=== PATIENT | male | born 1990 | race Caucasian/White ===

== ENCOUNTER 2018-11-30 15:24 | Emergency (ER) | payer SELFPAY ==
[2018-11-30 15:41] VITALS: BP 148/80
--- NOTE | 2018-11-30 16:58 | ER Document Report ---
ED General - General Chief Complaint: Swelling of Lower Extremity Stated Complaint: SWOLLEN FEET Time Seen by Provider: 11/30/18 16:47 Mode of Arrival: Ambulatory Information source: Patient Notes: This 28-year-old healthy male presents to the emergency department with complaints of bilateral lower extremity swelling and non pruitic rash. Patient reports symptoms started yesterday. Denies fever vomiting diarrhea. Denies allergies. Denies past medical history. 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 TRAVEL OUTSIDE OF THE [place] IN LAST 30 DAYS: No - Related Data Allergies/Adverse Reactions: No Known Allergies Allergy (Verified 11/30/18 15:26) Past Medical History - General Information source: Patient - Social History Smoking Status: Current Every Day Smoker Chew tobacco use (# tins/day): No Frequency of alcohol use: None Drug Abuse: None Occupation: factory Family History: Reviewed & Not Pertinent. denies: CAD Patient has suicidal ideation: No Patient has homicidal ideation: No - Medical History Medical History: Negative Renal/ Medical History: Denies: Hx Peritoneal Dialysis Surgical Hx: Negative - Immunizations Hx Diphtheria, Pertussis, Tetanus Vaccination: Yes Review of Systems - Review of Systems Notes: Review HPI for review of systems., All other systems negative Physical Exam - Vital signs Vitals: Temp Pulse Resp BP Pulse Ox 97.7 F 87 14 148/80 H 96 11/30/18 15:40 11/30/18 15:40 11/30/18 15:40 11/30/18 15:40 11/30/18 15:40 - General General appearance: Appears well, Alert In distress: None - HEENT Head: Normocephalic Eyes: Normal Conjunctiva: Normal Extraocular movements intact: Yes Neck: Normal, Supple - Respiratory Respiratory status: No respiratory distress - Cardiovascular Rhythm: Regular - Extremities General upper extremity: Normal ROM General lower extremity: Normal ROM - Neurological Neuro grossly intact: Yes Cognition: Normal Orientation: AAOx4 Aurora Coma Scale Eye Opening: Spontaneous Antonino Coma Scale Verbal: Oriented [place] Coma Scale Motor: Obeys Commands Aurora Coma Scale Total: 15 Speech: Normal Sensory: Normal - Psychological Associated symptoms: Normal affect, Normal mood - Skin Skin Temperature: Warm Skin Moisture: Dry Location of irregularity: Extremities Character of irregularity: Macular - Flat macular irregular rash that blanches to bilateral medial ankles.. negative: Vesicular, Erythematous Irregularity with: Scaling - Scaling noted to the bottom of both feet, in between the toes.. negative: Tenderness, Warmth, Lymphangitis, Inflammation Course - Re-evaluation Re-evalutation: 11/30/18 18:11 This 28-year-old male presents emergency department with complaints of rash and bilateral leg swelling. Labs are unremarkable. Patient does have athletes feet. Was instructed on care of this. He verbalized understanding to all instructions. Dictation of this chart was performed using voice recognition software; therefore, there may be some unintended grammatical errors. 11/30/18 17:18 11/30/18 17:18 MCV 87 fl (80-97) 11/30/18 17:18 MCH 29.8 pg (27.0-33.4) 11/30/18 17:18 MCHC 34.3 g/dL (32.0-36.0) 11/30/18 17:18 RDW 13.5 % (11.5-14.0) 11/30/18 17:18 Seg Neutrophils % 69.8 % (42-78) 11/30/18 17:18 Lymphocytes % 16.9 % (13-45) 11/30/18 17:18 Monocytes % 8.4 % (3-13) 11/30/18 17:18 Eosinophils % 4.3 % (0-6) 11/30/18 17:18 Basophils % 0.6 % (0-2) 11/30/18 17:18 Absolute Neutrophils 7.6 10^3/uL (1.7-8.2) 11/30/18 17:18 Absolute Lymphocytes 1.8 10^3/uL (0.5-4.7) 11/30/18 17:18 Absolute Monocytes 0.9 10^3/uL (0.1-1.4) 11/30/18 17:18 Absolute Eosinophils 0.5 10^3/uL (0.0-0.6) 11/30/18 17:18 Absolute Basophils 0.1 10^3/uL (0.0-0.2) 11/30/18 17:18 Chloride 102 mmol/L (98-107) 11/30/18 17:18 Carbon Dioxide 31 mmol/L (22-30) H 11/30/18 17:18 Anion Gap 7 (5-19) 11/30/18 17:18 Est GFR ( Amer) > 60 (>60) 11/30/18 17:18 Est GFR (Non-Af Amer) > 60 (>60) 11/30/18 17:18 Glucose 95 mg/dL (75-110) 11/30/18 17:18 Calcium 9.8 mg/dL (8.4-10.2) 11/30/18 17:18 Total Bilirubin 0.4 mg/dL (0.2-1.3) 11/30/18 17:18 AST 22 U/L (17-59) 11/30/18 17:18 ALT 32 U/L (21-72) 11/30/18 17:18 Alkaline Phosphatase 95 U/L (38-126) 11/30/18 17:18 Total Protein 7.2 g/dL (6.3-8.2) 11/30/18 17:18 Albumin 4.5 g/dL (3.5-5.0) 11/30/18 17:18 Urine Color STRAW 11/30/18 17:18 Urine Appearance CLEAR 11/30/18 17:18 Urine pH 8.0 (5.0-9.0) 11/30/18 17:18 Ur Specific Orwell 1.005 11/30/18 17:18 Urine Protein NEGATIVE mg/dL (NEGATIVE) 11/30/18 17:18 Urine Glucose (UA) NEGATIVE mg/dL (NEGATIVE) 11/30/18 17:18 Urine Ketones NEGATIVE mg/dL (NEGATIVE) 11/30/18 17:18 Urine Blood NEGATIVE (NEGATIVE) 11/30/18 17:18 Urine Nitrite NEGATIVE (NEGATIVE) 11/30/18 17:18 Ur Leukocyte Esterase NEGATIVE (NEGATIVE) 11/30/18 17:18 Urine WBC (Auto) 1 /HPF 11/30/18 17:18 Urine RBC (Auto) 1 /HPF 11/30/18 17:18 - Vital Signs Vital signs: Temp Pulse Resp BP Pulse Ox 97.7 F 87 14 148/80 H 96 11/30/18 15:40 11/30/18 15:40 11/30/18 15:40 11/30/18 15:40 11/30/18 15:40 - Laboratory Result Diagrams: 11/30/18 17:18 11/30/18 17:18 Laboratory results interpreted by me: 11/30/18 11/30/18 17:18 17:18 WBC 10.8 H Carbon Dioxide 31 H Discharge - Discharge Clinical Impression: Athletes foot Qualifiers: Laterality: bilateral Qualified Code(s): B35.3 - Tinea pedis Condition: Stable Disposition: HOME, SELF-CARE Instructions: Athletes Foot ([facility]) Additional Instructions: *You have been treated for bilateral leg swelling, rash athletes foot *Take medication as prescribed *Monitor your skin for signs of infection such as increasing pain, redness, swelling, warmth *rest, elevate your legs *Follow up with a primary care provider within one week *Return to ED for signs of infection, worsening condition, changes, needs Monitor your blood pressure. Your blood pressure was elevated today. This may be because you were anxious, in pain or because you need medication. It is important to follow up with your primary care provider for full evaluation. Forms: Elevated Blood Pressure, Return to Work
[2018-11-30 17:42] LABS: ABSOLUTE BASOPHILS # (AUTO) 0.1 10^3/uL (0.0-0.2); ABSOLUTE EOSINOPHILS # (AUTO) 0.5 10^3/uL (0.0-0.6); ABSOLUTE LYMPHOCYTES (AUTO) 1.8 10^3/uL (0.5-4.7); ABSOLUTE MONOCYTES (AUTO) 0.9 10^3/uL (0.1-1.4); ABSOLUTE NEUT (AUTO) 7.6 10^3/uL (1.7-8.2); BASOPHILS % (AUTO) 0.6 % (0-2); EOSINOPHILS % (AUTO) 4.3 % (0-6); HEMOGLOBIN 14.7 g/dL (13.5-17.0); LYMPHOCYTES % (AUTO) 16.9 % (13-45); MEAN CORPUSCULAR HEMOGLOBIN 29.8 pg (27.0-33.4); MEAN CORPUSCULAR HGB CONC 34.3 g/dL (32.0-36.0); MEAN CORPUSCULAR VOLUME 87 fl (80-97); MONOCYTES % (AUTO) 8.4 % (3-13); PLATELET COUNT 251 10^3/uL (150-450); RED BLOOD COUNT 4.94 10^6/uL (4.35-5.55); RED CELL DISTRIBUTION WIDTH 13.5 % (11.5-14.0); SEGMENTED NEUTROPHILS % (AUTO) 69.8 % (42-78); TOTAL CELLS COUNTED % (AUTO) 100 %; WHITE BLOOD COUNT 10.8 10^3/uL (4.0-10.5)
[2018-11-30 17:48] LABS: APPEARANCE,URINE CLEAR; BILIRUBIN,URINE NEGATIVE (NEGATIVE); COLOR,URINE STRAW; GLUCOSE, URINE NEGATIVE (NEGATIVE); KETONES,URINE NEGATIVE (NEGATIVE); LEUKOCYTE ESTERASE,URINE NEGATIVE (NEGATIVE); NITRITE,URINE NEGATIVE (NEGATIVE); PROTEIN,URINE NEGATIVE (NEGATIVE); URINE SPECIFIC GRAVITY 1.005; UROBILINOGEN,URINE NEGATIVE mg/dL (<2.0)
[2018-11-30 17:57] LABS: ALANINE AMINOTRANSFERASE 32 U/L (21-72); ALBUMIN 4.5 g/dL (3.5-5.0); ALKALINE PHOSPHATASE 95 U/L (38-126); ANION GAP 7 (5-19); ASPARTATE AMINO TRANSFERASE 22 U/L (17-59); BILIRUBIN,DIRECT 0.2 mg/dL (0.0-0.4); BILIRUBIN,TOTAL 0.4 mg/dL (0.2-1.3); BLOOD UREA NITROGEN 8 mg/dL (7-20); CALCIUM 9.8 mg/dL (8.4-10.2); CARBON DIOXIDE 31 mmol/L (22-30); CHLORIDE 102 mmol/L (98-107); GLUCOSE 95 mg/dL (75-110); POTASSIUM 4.4 mmol/L (3.6-5.0); TOTAL PROTEIN 7.2 g/dL (6.3-8.2)
== END 2018-11-30 18:29 | disposition home or self-care (01) ==
LOC: ER 15:24
DX: B35.3 Tinea pedis (principal); F17.200 Nicotine dependence, unspecified, uncomplicated
CPT/HCPCS: 36415; 80053; 81001; 85025; 99283

== ENCOUNTER → 2019-11-17 | Outpatient (CLI) | payer BC ==
--- NOTE | 2019-11-17 12:00 | ER [facility] ASSESSMENT REPORT ---
Intake - In the Last 14 days Have you traveled outside [place]?: No Have you been in close contact with someone CONFIRMED: No Worked in Healthcare?: No - Symptoms Subjective Fever([place] feverish): Yes Chills: No Muscule Aches: Yes Runny Nose: Yes Sore Throat: Yes Cough (New or worsening chronic cough): Yes Shortness of breath: Yes Nausea or Vomiting: No Headache: Yes Abdominal Pain: No Diarrhea(3 or more loose stools in last 24 hours): No - Do you have any of the following Chronic lung disease: Asthma or emphysema or COPD: No Cystic Fibrosis: No Diabetes: No High Blood Pressure: No Cardiovascular Disease: No Chronic Kidney Disease: No Chronic Liver Disease: No Chronic blood disorder like Sickle Cell Disease: No Weak immune system due to disease or medication: No Neurologic condition that limits movement: No Developmental delay - Moderate to Severe: No Recent (within past 2 weeks) or current : No Morbid Obesity (>100 pounds over ideal weight): No - Objective Temperature: 97.4 F Pulse Rate: 84 Respiratory Rate: 18 Blood Pressure: 142/68 O2 Sat by Pulse Oximetry: 96 Objective: Given above, testing performed: If Testing Performed: Test Specimen Type Sent to General - General Information source: Patient Notes: Patient presents to the [facility] for screening for the coronavirus. Patient reports having symptoms for the past 5 days including fever, body aches, runny nose, sore throat cough and shortness of breath. Patient has had a headache as well. Patient denies any significant medical history. Patient is a smoker. - Related Data Allergies/Adverse Reactions: No Known Allergies Allergy (Verified 11/30/18 15:26) Past Medical History - General Information source: Patient - Social History Smoking Status: Current Every Day Smoker Family History: Reviewed & Not Pertinent. denies: CAD - Medical History Medical History: Negative Renal/ Medical History: Denies: Hx Peritoneal Dialysis Surgical Hx: Negative Physical Exam - Notes Notes: Full physical exam could not be performed due to covid 19 isolation protocols. Constitutional: Nontoxic appearance, no acute distress Eyes: Nonicteric, extraocular movements intact, sclera clear Cardiovascular: Heart rate and rhythm regular, no JVD Respiratory: Breath sounds clear bilaterally, nonlabored breathing, no use of accessory muscles, no tachypnea Gastrointestinal: Abdomen not distended Muculoskeletal: Moves all extremities well Skin: Normal color Neuro: Awake alert oriented, normal speech Psych: Normal mood and affect Diagnostic Results Laboratory Results: The patient was evaluated during the global Covid 19 pandemic, and that diagnosis was suspected/considered upon their initial presentation. Their evaluation, treatment and testing was consistent with current guidelines for patients who present with complaints or symptoms that may be related to Covid 19. Patient presents with upper respiratory symptoms worrisome for possible Covid 19. Patient does not have emergency worrying symptoms such as difficulty breathing, shortness of breath, chest pain, pressure, confusion or cyanosis. Patient appears suitable for discharge as they are not of an advanced age, do n ot have any chronic medical conditions such as diabetes, CAD, immune deficiency, chronic lung disease or chronic kidney disease. Patient's vital signs are stable and patient is nontoxic in appearance. Good return precautions have been discussed with patient, patient verbalized understanding and is agreeable with discharge plan of care at this time. Patient Education/Counseling Counseling/Education: Patient was provided with discharge information including: As a person under investigation for Covid 19, the [facility] of Health and Human Services, division of public health advises you to adhere to the following guidance until your test results are reported to you. If your test result is positive, you will receive additional information from your provider and your local health department at that time. Remain at home until you are cleared by the health provider or public health authorities. Keep a log of visitors to your home, notify any visitors to your home of your isolation status. If you plan to move to a new address or leave the county, notify the local health department in your County. Call your doctor or seek care if you have an urgent medical need. Before seeking medical care, call ahead to get instructions from the provider before arriving at the medical office clinic or hospital. Notify them that you are b eing tested for the virus that causes Covid 19 so that arrangements can be made, as necessary, to prevent transmission to others in the healthcare setting. Next, notify the local health department in your county. If a medical emergency arises and you need to call 911, inform the first responders that you are being tested for the virus that causes Covid 19. Next, notify the local health department in your county. [facility] Discharge - Discharge Clinical Impression: Encounter for screening laboratory testing for COVID-19 virus Condition: Stable Disposition: Home; Selfcare
[2019-11-17 12:01] VITALS: BP 142/68
--- NOTE | 2019-11-21 13:06 | Progress Note ---
Provider Note Provider Note: Strep culture positive. Patient informed by phone of results. Rx for penicillin sent to patient's preferred pharmacy.
== END ==
LOC: RDC 11:16
PROVIDERS: ATTEND Nurse Practitioner Family
DX: Z20.828 Contact with and (suspected) exposure to other viral communicable diseases (principal); R50.9 Fever, unspecified; J02.9 Acute pharyngitis, unspecified; R06.02 Shortness of breath; R05 Cough; R09.89 Other specified symptoms and signs involving the circulatory and respiratory systems; M79.10 Myalgia, unspecified site; R51 Headache; F17.200 Nicotine dependence, unspecified, uncomplicated
CPT/HCPCS: 87070; 87880; 87635; 87077; C9803; 99201; 99211